=== PATIENT | male | born 1955 | race Caucasian/White ===

== ENCOUNTER 2017-02-12 15:54 | Emergency (ER) | payer OTHER ==
[2017-02-12] MEDS ORDERED: MORPHINE SULFATE 4 MG/1 ML IVP PRN (16:12)
[2017-02-12] MEDS ORDERED: Sodium Chloride 0.9% 1,000 ML PRIMARY IV ONE (16:12)
[2017-02-12] MEDS ORDERED: ONDANSETRON 4 MG/2 ML VIAL IVP ONE (16:12)
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
--- NOTE | 2017-02-12 16:30 | EKG ---
[address] [place] [address] Measurements Intervals [place] Rate: 94 P: 39 SC: 169 QRS: -61 QRSD: 94 T: 81 QT: 364 QTc: 416 Interpretive Statements SINUS RHYTHM LEFT ANTERIOR FASCICULAR BLOCK [QRS AXIS <= -45, QR IN I, RS IN II] POSSIBLE ANTERIOR MYOCARDIAL INFARCTION [30 ms Q WAVE IN V3/V4, OR R < 0.2 mV IN V4], OF INDETERMINATE AGE No previous ECG available for comparison Electronically Signed On 02-13-17 08:55:47 MDT by Esteban Yi MD [email or web address]
[2017-02-12 16:36] LABS: BASOPHILS # (AUTO) 0.07 10*3/UL; BASOPHILS % (AUTO) 0.6 % (0-1); EOSINOPHILS # (AUTO) 0.13 10*3/UL; HEMATOCRIT 42.8 % (42.0-52.0); HEMOGLOBIN 14.2 g/dL (14.0-18.0); LYMPHOCYTES # (AUTO) 2.39 10*3/uL; MEAN CORPUSCULAR HEMOGLOBIN 29.1 PG (27-31); MEAN CORPUSCULAR HGB CONC 33.2 g/dL (33-37); MEAN CORPUSCULAR VOLUME 87.7 FL (80-90); MEAN PLATELET VOLUME 11.5 FL (7.4-12.2); MONOCYTES # (AUTO) 1.05 10*3/UL (0.3-0.8); MONOCYTES % (AUTO) 8.3 % (5-15); NEUTROPHILS # (AUTO) 8.99 10*3/UL; RED BLOOD COUNT 4.88 10^6/uL (4.70-6.10)
[2017-02-12] MEDS ORDERED: ceFAZolin Inj 2gm (Premix) 2 GM in Dextrose 1 BAG IV ONE (16:36)
[2017-02-12 16:37] LABS: PLATELET MORPHOLOGY COMMENT NORMAL MORPHOLOGY (NORM); RBC MORPHOLOGY COMMENT NORMAL MORPHOLOGY (NORM); WBC MORPHOLOGY COMMENT NORMAL MORPHOLOGY (NORM)
[2017-02-12 16:45] LABS: LIPASE 11 IU/L (23-300)
[2017-02-12 16:46] LABS: BUN/CREATININE RATIO 27.85 (6-20); CALCIUM 8.5 mg/dL (8.7-10.7); SERUM ALBUMIN 3.8 g/dL (3.5-4.8)
[2017-02-12 16:55] LABS: BILIRUBIN,URINE SMALL (NEG); CLARITY,URINE CLEAR (CLEAR); COLOR,URINE YELLOW; GLUCOSE, URINE (UA) NEGATIVE (NEG); NITRATE,URINE NEGATIVE (NEG); OCCULT BLOOD,URINE LARGE (NEG); PROTEIN,URINE >300 mg/dl (NEG); UROBILINOGEN,URINE 0.2 EU/dL (0.2)
[2017-02-12 17:03] LABS: URINE SAMPLE TYPE CATH SPECIMEN
[2017-02-12 17:04] LABS: OPIATE SCREEN,URINE POSITIVE (NEG); SQUAMOUS EPITHELIAL CELL,UR RARE; URINE CRYSTALS FEW; URINE SPECIFIC GRAVITY - MAN 1.029
[2017-02-12 17:05] LABS: AMPHETAMINE SCREEN NEGATIVE (NEG); CANNABINOID SCREEN,URINE NEGATIVE (NEG); COCAINE SCREEN NEGATIVE (NEG); METHADONE URINE SCREEN NEGATIVE (NEG); METHAMPHETAMINES SCREEN,URINE NEGATIVE (NEG)
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
[2017-02-12 18:53] VITALS: RESP 20; TEMP 98.9
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
== END 2017-02-12 18:31 | disposition short-term general hospital (02) ==
LOC: ER 15:54
DX: S82.452A Displaced comminuted fracture of shaft of left fibula, initial encounter for closed fracture (principal); S82.252A Displaced comminuted fracture of shaft of left tibia, initial encounter for closed fracture; S92.412B Displaced fracture of proximal phalanx of left great toe, initial encounter for open fracture; S92.592A Other fracture of left lesser toe(s), initial encounter for closed fracture; M25.572 Pain in left ankle and joints of left foot; M25.522 Pain in left elbow; R22.42 Localized swelling, mass and lump, left lower limb; M25.562 Pain in left knee; S40.212A Abrasion of left shoulder, initial encounter; S20.411A Abrasion of right back wall of thorax, initial encounter; S50.312A Abrasion of left elbow, initial encounter; S80.212A Abrasion, left knee, initial encounter; S90.512A Abrasion, left ankle, initial encounter; V28.4XXA Motorcycle driver injured in noncollision transport accident in traffic accident, initial encounter; Y92.411 Interstate highway as the place of occurrence of the external cause
CPT/HCPCS: 29505; 70450; 71010; 71260; 72125; 72170; 73080; 73560; 73610; 73620; 74177; 80053; 80305; 80320; 81001; 81003; 82150; 83605; 83690; 84443; 85025; 85610; 86850; 86900; 86901; 93005; 93010; 96374; 96375; 99285